=== PATIENT | female | born 1990 | race Caucasian/White ===

== ENCOUNTER 2016-08-30 21:45 | Emergency (ER) | payer OTHER ==
[~2016-08-30] VITALS: Ht 157.5 cm; Wt 70.3 kg
[~2016-08-30 21:45] MED LIST: BLM PO; LOTRISONE CREAM15 G1 TOP; MOTRIN800 MG PO; MUPIROCIN22 GM TOP; TESSALON PERLE100 MG PO; VYVANSE50 M1 PO
[2016-08-30 22:27] LABS: ABSOLUTE BASOPHIL COUNT 0 /CUMM (0.0-0.2); ABSOLUTE EOSINOPHIL COUNT 0.1 /CUMM (0.0-0.7); ABSOLUTE GRANULOCYTE CT 7.9 /CUMM (1.4-6.5); ABSOLUTE LYMPH COUNT 3.2 /CUMM (1.2-3.4); ABSOLUTE MONOCYTE COUNT 1.1 /CUMM (0.10-0.60); BASOPHIL % 0.3 % (0.0-2.0); HEMATOCRIT 40.9 % (37-47); MEAN CORPUSCULAR HGB 28.9 PG (27.0-31.0); MEAN CORPUSCULAR HGB CONC 33.3 G/DL (33.0-37.0); MEAN PLATELET VOLUME 8.9 FL (7.4-10.4); PLATELET COUNT 303 /CUMM (130-400); RBC DISTRIBUTION WIDTH 12.5 % (11.5-14.5); WHITE BLOOD CELL COUNT 12.4 /CUMM (4.8-10.8)
--- NOTE | 2016-08-30 23:29 | ED SYNCOPE COMPLAINT ---
History of Present Illness General Chief Complaint: Syncope and Near-Syncope Stated Complaint: SYNCOPE Source: patient, family, old records Exam Limitations: no limitations Vital Signs & Intake/Output Vital Signs & Intake/Output Vital Signs Date Time Temp Pulse Resp B/P Pulse O2 O2 Flow FiO2 Ox Delivery Rate 08/30 2337 98.9 89 16 119/70 99 Room Air 08/30 2234 102/00 08/30 2212 84 60/00 ED Intake and Output 08/31 0000 08/30 1200 Intake Total 1000 Output Total Balance 1000 Intake, IV 1000 Patient 155 lb Weight Allergies Coded Allergies: NO KNOWN ALLERGIES (02/29/16) Reconcile Medications Benzonatate (Tessalon Perle) 100 MG CAPSULE 1 TAB PO Q8H PRN COUGH Ibuprofen (Motrin) 800 MG TAB 1 TAB PO Q8H PRN PAIN/fevers LIDO/MAAL/KHANG (Magic Mouthwash) (Lido-Visc2% 30ML/[id number],MAALOX 120ml) 270 ML KATHLEEN 10 ML PO Q8H PRN sore throat SWISH AND SWALLOW Lisdexamfetamine Dimesylate (Vyvanse) 50 MG CAPSULE 1 CAP PO DAILY MENTAL HEALTH (Reported) Lotrisone (Lotrisone Cream) 15 GM CREAM..G. 1 NIKO TOP QAMPM PARONYCHIA apply to affected area(s) Mupirocin 22 GM OINT...G. 1 NIKO TOP TID PARONYCHIA apply to affected area(s) Triage Note: PT TO ED FROM UPSTAIRS IN HOSPITAL. PT WAS VISITING HER FATHER WHEN SHE BEGAN TO EXPERIENCE RINGING AND PAIN IN THE EARS, NAUSEA, AND BLURRY VISION THAT WENT DARK. AT THAT MOMENT THE PT FELL BACK IN HER CHAIR AND PASSED OUT REPORTED BY HER SISTER. PT ARRIVES TO THE ED LETHARGIC INITIALLY, BUT HAS SINCE BEEN ALERT AND RESPONSIVE. PT IS ABLE TO RECALL EVENTS LEADING UP TO HER PASSING OUT. BP [address] GALVEZ AT BEDSIDE FOR EVAL. PT ONLY HAS HISTORY OF ADHD. Triage Nurses Notes Reviewed? yes Timing: single episode today Precipitating Factors: lightheadedness Context: became dizzy/fainted Episode Description: Syncope Loss of Consciousness: brief (seconds) Associated Symptoms: diaphoresis, dizziness, syncope, weakness LMP (ages 10-50): unknown : No Patient currently breastfeeds: No HPI: Prior to admission patient was observing father have blood drawn and felt breathing ringing in her ears dizziness sweatiness and passed out. She denies fever chills nausea vomiting diarrhea abdominal pain chest pain shortness of breath headache dysuria rash bleeding. Past History Travel History Traveled to [place] past 21 day No Medical History Any Pertinent Medical History? 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 No Review of Systems Review of Systems Constitutional: Reports: see HPI, diaphoresis, weakness. EENTM: Reports: see HPI, hearing changes. Respiratory: Reports: no symptoms. Cardiovascular: Reports: no symptoms. GI: Reports: no symptoms. Genitourinary: Reports: no symptoms. Musculoskeletal: Reports: no symptoms. Skin: Reports: no symptoms. Neurological/Psychological: Reports: see HPI, weakness. All Other Systems: Reviewed and Negative Physical Exam Physical Exam General Appearance: well developed/nourished, alert, awake, anxious, severe distress Head: atraumatic, normal appearance Eyes: Bilateral: normal appearance, PERRL, EOMI. Ears, Nose, Throat: normal pharynx, normal ENT inspection, hearing grossly normal Neck: normal inspection, supple, full range of motion, no midline tenderness Respiratory: normal breath sounds, chest non-tender, no respiratory distress, quiet respiration, lungs clear Cardiovascular: regular rate/rhythm, normal peripheral pulses, norml femoral pulses equa Gastrointestinal: normal bowel sounds, soft, non-tender, no organomegaly Back: normal inspection, normal range of motion, no vertebral tenderness Extremities: normal inspection, normal capillary refill, no edema Psychiatric: awake, alert, oriented x 3 Cranial Nerves: normal hearing, normal speech, PERRL Coordination/Gait: normal finger to nose, normal gait Motor/Sensory: no motor/sensory deficits Reflexes: 2+: bicep (R), bicep (L). Skin: intact, normal color, warm/dry Lymphatic: no anterior cervical krish Core Measures ACS in differential dx? No CVA/TIA Diagnosis: No Severe Sepsis Present: No Septic Shock Present: No Progress Differential Diagnosis: orthostatic syncope, vasodepressor syncope Plan of Care: Orders Procedure Date/time Status TROPONIN LEVEL 08/30 2199 Complete HUMAN BETA HCG SCREEN 08/30 2199 Complete COMPREHENSIVE METABOLIC PANEL 08/30 2199 Complete CBC WITHOUT DIFFERENTIAL 08/30 2199 Complete EKG 08/30 2148 Active Laboratory Tests 08/30/162200: Anion Gap 10, Estimated GFR > 60, BUN/Creatinine Ratio 18.9, Glucose 94, Calcium 10.2, Total Bilirubin 0.8, AST 19, ALT 38, Alkaline Phosphatase 81, Troponin I < 0.01, Total Protein 7.8, Albumin 4.7, Globulin 3.1, Albumin/Globulin Ratio 1.5, Total Beta HCG NEGATIVE, CBC w Diff NO MAN DIFF REQ, RBC 4.70, MCV 87.0, MCH 28.9, RDW 12.5, MPV 8.9, Gran % 64.0, Lymphocytes % 25.9, Monocytes % 8.8, Eosinophils % 1.0, Basophils % 0.3, Absolute Granulocytes 7.9 H, Absolute Lymphocytes 3.2, Absolute Monocytes 1.1 H, Absolute Eosinophils 0.1, Absolute Basophils 0, PUBS MCHC 33.3 Initial ED EKG: normal axis, normal intervals, normal p-waves, normal QRS complex, normal sinus rhythm, no ST T wave changes Rhythm Strip: normal sinus rhythm Departure Departure Time of Disposition: 2327 Disposition: HOME OR SELF CARE Condition: Stable Clinical Impression Primary Impression: Vasovagal syncope Referrals: [id number] VANCE MD (PCP/Family) Departure Forms: Customer Survey General Discharge Information
[2016-08-30 23:37] VITALS: BP 119/70
== END 2016-08-30 23:43 ==
LOC: ERH 21:45
PROVIDERS: Emergency Medicine
DX: R55 Syncope and collapse (principal)
CPT/HCPCS: 93005; 93010